=== PATIENT | male | born 1960 | race Caucasian/White ===

== ENCOUNTER 2022-05-31 18:42 | Emergency (ER) | payer BC ==
[2022-05-31] MEDS ORDERED: Sodium Chloride 0.9% 1,000 ML IV ONE (19:55)
[2022-05-31] MEDS ORDERED: Meclizine 12.5 MG Tab PO ONE (19:56)
== END 2022-05-31 22:15 | disposition home or self-care (01) ==
LOC: JD.ED 18:42
DX: H81.10 Benign paroxysmal vertigo, unspecified ear (principal); E78.00 Pure hypercholesterolemia, unspecified; I10 Essential (primary) hypertension; E66.9 Obesity, unspecified; Z68.41 Body mass index [BMI] 40.0-44.9, adult; Z79.899 Other long term (current) drug therapy; Z86.16 Personal history of COVID-19
CPT/HCPCS: 36415; 80053; 96360; 99284; A9270; J7030